=== PATIENT | female | born 1955 | race Caucasian/White ===

== ENCOUNTER → 2016-04-24 16:46 | Outpatient (CLI) | payer OTHER ==
[2011-04-08 06:40] VITALS: BMI 54.3
== END | disposition home or self-care (01) ==
LOC: D.MAMMO 09:45
DX: Z12.31 Encounter for screening mammogram for malignant neoplasm of breast (principal)

== ENCOUNTER → 2016-05-29 16:42 | Outpatient (CLI) | payer OTHER ==
[2011-04-08 06:40] VITALS: BMI 54.3
== END | disposition home or self-care (01) ==
LOC: D.MAMMO 10:00
DX: R92.8 Other abnormal and inconclusive findings on diagnostic imaging of breast (principal)

== ENCOUNTER → 2016-06-21 16:01 | Outpatient (CLI) | payer OTHER ==
[2011-04-08 06:40] VITALS: BMI 54.3
== END | disposition home or self-care (01) ==
LOC: D.MAMMO 06-06 13:00
DX: R92.8 Other abnormal and inconclusive findings on diagnostic imaging of breast (principal)

== ENCOUNTER → 2017-01-08 13:09 | Outpatient (CLI) | payer OTHER ==
[2011-04-08 06:40] VITALS: BMI 54.3
== END | disposition home or self-care (01) ==
LOC: D.MAMMO 11:00
DX: R92.8 Other abnormal and inconclusive findings on diagnostic imaging of breast (principal)

== ENCOUNTER 2018-05-11 19:00 | Outpatient (CLI) | payer OTHER ==
[2011-04-08 06:40] VITALS: BMI 54.3
== END 2018-05-11 23:59 | disposition home or self-care (01) ==
LOC: D.MAMMO 19:00
PROVIDERS: ATTEND Family Medicine
DX: Z12.31 Encounter for screening mammogram for malignant neoplasm of breast (principal)